=== PATIENT | female | born 1955 | race Caucasian/White ===

== ENCOUNTER 2024-04-28 09:09 | Day surgery (SDC) | payer MEDICARE, OTHER ==
[2024-04-28] MEDS: Proparacaine 0.5% Ophth Soln 15 ML Bottle EYERT ONE ×3 (09:00→09:45)
[2024-04-28] MEDS: Povidone-Iodine 5% Sterile Ophth Soln 30 ML Bottle EYERT ONE ×3 (09:01→09:45)
[2024-04-28] MEDS: Lidocaine 1% 30 ML SDV ONE ×2 (09:01→09:56)
[~2024-04-28 09:09] MED LIST: Acetaminophen 325 MG Tab PO PRN; Acetaminophen/Codeine 300-30 MG Tab PO PRN; Ondansetron 4 MG/2 ML SDV IVPUSH PRN
[2024-04-28] MEDS: Vancomycin 500 MG SDV EYERT ONE ×2 (09:24→09:56)
[2024-04-28] MEDS: Diclofenac Sodium 0.1% Ophth Soln 5 ML Bottle EYERT ONE ×2 (09:25→09:58)
[2024-04-28] MEDS: Apraclonidine 0.5% Ophth Soln 5 ML Bot EYERT ONE ×2 (09:25→09:58)
[2024-04-28] MEDS: Dexamethasone/Neomycin/Polymyxin B Ophth Oint 3.5 GM Tube EYERT ONE ×2 (09:26→09:58)
[2024-04-28] MEDS: Moxifloxacin 0.5% Ophth Soln 3 ML Bottle EYERT ONE (09:26)
[2024-04-28] MEDS: Tropicamide 1% Ophth Soln 15 ML Bottle EYERT ONE (09:27)
[2024-04-28] MEDS: Phenylephrine 10% Ophth Soln 5 ML Bot EYERT ONE (09:28)
[2024-04-28] MEDS: Timolol Maleate 0.5% Ophth Soln 5 ML Bottle EYERT ONE (09:29)
[2024-04-28] MEDS: Sodium Chloride 0.9% 10 ML Syringe FLUSH PRN (09:33)
[2024-04-28] MEDS: Cataract Ophth Solution EYERT ONE (09:39)
== END 2024-04-28 11:00 | disposition home or self-care (01) ==
LOC: DL.SDS 09:09
PROVIDERS: ATTEND Ophthalmology
DX: H25.811 Combined forms of age-related cataract, right eye (principal); I11.0 Hypertensive heart disease with heart failure; I50.9 Heart failure, unspecified; E78.5 Hyperlipidemia, unspecified; Z87.891 Personal history of nicotine dependence; Z79.899 Other long term (current) drug therapy; Z79.82 Long term (current) use of aspirin
CPT/HCPCS: 66984; A9270; J3370; J3490